=== PATIENT | female | born 1990 | race Caucasian/White ===

== ENCOUNTER 2019-10-08 22:49 | Outpatient (CLI) | payer MEDICAID ==
[~2019-10-08] VITALS: Ht 167.7 cm; Wt 118.7 kg
[~2019-10-08 22:49] MED LIST: HYOS0.1283 SL; IBP600T1 PO; IBUP-1773 PO; NITR-65 PO; ONDA4TAB8 PO; PREN-115 PO; PREN1TAB86 PO
--- NOTE | 2019-10-08 23:02 | NUR ---
JAIMEE TAMEZ presented to unit via AMBULAYION from ED, accompanied by SO, with c/o DIZZY,VOMITING. JAIMEE TAMEZ weighed, gowned, voided, and to bed. EFHM and TOCO applied, VS taken. JAIMEE TAMEZ oriented to bed controls, call light, TV, heat, and A/C controls.
[2019-10-08 23:18] VITALS: BP 132/71
--- NOTE | 2019-10-08 23:19 | NUR ---
Dr Thomas called and report given, pt denies nausea now but states she feels dizzy. Orders for pt to go to ER for eval. Pt requested to walk to ER. Pt educated on labor precautions and given verbal and written discharge papers.
[2019-10-08 23:23] LABS: BILIRUBIN,URINE NEGATIVE (NEGATIVE); CLARITY,URINE SL CLOUDY; COLOR,URINE YELLOW; GLUCOSE, URINE (UA) NEGATIVE (NEGATIVE); KETONES,URINE NEGATIVE (NEGATIVE); LEUKOCYTE ESTERASE ,URINE NEGATIVE (NEGATIVE); NITRITE,URINE NEGATIVE (NEGATIVE); PROTEIN,URINE NEGATIVE (NEGATIVE)
[2019-10-08 23:33] LABS: BACTERIA,URINE TRACE /HPF
[2019-10-08 23:34] VITALS: BP 132/71
[2019-10-08 23:37] VITALS: BP 132/71
[2019-10-09] MEDS ORDERED: ONDA4TAB11 PO (02:49)
--- NOTE | 2019-10-09 08:23 | Physician Query-Final Dx ---
ERIC BAZAN 10/09/19 0823: Clinic Account Progress/Dx Physician Query: Please give diagnosis Please include # weeks gestation Date of Service Oct 08, 2019 at 22:49 NICK DOUGLAS MD 10/09/19 1346: Clinic Account Progress/Dx DIAGNOSIS: Diagnosis Dizziness 25 weeks gestation ERIC BAZAN Oct 09, 2019 08:23 NICK DOUGLAS MD Oct 09, 2019 13:46
== END 2019-10-08 23:34 | disposition home or self-care (01) ==
LOC: LDRP 22:49 → WSo 22:49
PROVIDERS: ATTEND Family Medicine
DX: O26.812 Pregnancy related exhaustion and fatigue, second trimester (principal); Z3A.25 25 weeks gestation of pregnancy
CPT/HCPCS: 81000; 87088; 99212

== ENCOUNTER 2019-10-08 23:38 | Emergency (ER) | payer MEDICAID ==
[~2019-10-08] VITALS: Ht 167.7 cm; Wt 118.7 kg
[2019-10-09] MEDS ORDERED: LACTATED RINGERS 1,000 ML IV ONE (00:33)
[2019-10-09] MEDS ORDERED: ONDANSETRON 4 MG/2 ML (SDV) Z0FRAN IVP ONE (00:45)
[2019-10-09 00:55] LABS: BASOPHILS % (AUTO) 0 % (0-10); EOSINOPHILS # (AUTO) 0.2 10^3/uL (0.0-0.3); EOSINOPHILS % (AUTO) 3 % (0-10); HEMATOCRIT 35 % (35-52); HEMOGLOBIN 11.8 G/DL (11.5-16.0); LYMPHOCYTES # (AUTO) 1.9 X 10^3 (1.0-4.0); LYMPHOCYTES % (AUTO) 20 % (12-44); MEAN CORPUSCULAR HEMOGLOBIN 29 PG (25-34); MEAN CORPUSCULAR HGB CONC 33 G/DL (32-36); MEAN CORPUSCULAR VOLUME 87 FL (80-99); MEAN PLATELET VOLUME 11.6 FL (7.4-10.4); MONOCYTES # (AUTO) 0.7 X 10^3 (0.0-1.0); MONOCYTES % (AUTO) 7 % (0-12); NEUTROPHILS # (AUTO) 6.9 X 10^3 (1.8-7.8); NEUTROPHILS % (AUTO) 71 % (42-75); PLATELET COUNT 227 10^3/uL (130-400); RED CELL DISTRIBUTION WIDTH 13.8 % (10.0-14.5); WHITE BLOOD COUNT 9.8 10^3/uL (4.3-11.0)
[2019-10-09 01:17] LABS: ALANINE AMINOTRANSFERASE 9 U/L (0-55); ALBUMIN 3.7 GM/DL (3.2-4.5); ALKALINE PHOSPHATASE 53 U/L (40-136); AMYLASE 37 U/L (25-125); BILIRUBIN,TOTAL 0.2 MG/DL (0.1-1.0); BUN/CREATININE RATIO 10; CALCIUM 9.7 MG/DL (8.5-10.1); CARBON DIOXIDE 20 MMOL/L (21-32); CHLORIDE 104 MMOL/L (98-107); CREATININE SERUM 0.62 MG/DL (0.60-1.30); GFR ESTIMATED > 60; GLUCOSE 103 MG/DL (70-105); LIPASE 12 U/L (8-78); MAGNESIUM 1.6 MG/DL (1.6-2.4); POTASSIUM 3.6 MMOL/L (3.6-5.0); SODIUM 139 MMOL/L (135-145); TOTAL PROTEIN 6.7 GM/DL (6.4-8.2)
[2019-10-09 01:49] VITALS: BP_SYST 115; BP_SYST 118; BP_SYST 124; BP_DIAS 66; BP_DIAS 68; BP_DIAS 70
[2019-10-09 01:52] LABS: BILIRUBIN,URINE NEGATIVE (NEGATIVE); CLARITY,URINE CLEAR; COLOR,URINE YELLOW; GLUCOSE, URINE (UA) NEGATIVE (NEGATIVE); KETONES,URINE NEGATIVE (NEGATIVE); LEUKOCYTE ESTERASE ,URINE NEGATIVE (NEGATIVE); NITRITE,URINE NEGATIVE (NEGATIVE); PROTEIN,URINE NEGATIVE (NEGATIVE)
[2019-10-09 01:57] LABS: BACTERIA,URINE TRACE /HPF; RBC,URINE RARE /HPF; WBC,URINE RARE /HPF
[2019-10-09] MEDS ORDERED: RX-ONDANSETRON 4 MG ODT (ZOFRAN) PPK #4 PO STA (02:27)
[2019-10-09] MEDS ORDERED: ONDA4TAB11 PO (02:49)
[2019-10-09 02:50] VITALS: BP 122/74
--- NOTE | 2019-10-09 02:50 | ED GI ---
General Chief Complaint: Abdominal/GI Problems Stated Complaint: N,DIZZY,25 WKS PREG Nursing Triage Note: COMPALINS OF DIZZINESS X 2 DAYS AND STARTED HAVING NAUSEA AND VOMITING TODAY Sepsis Screen: No Definite Risk Source of Information: Patient History of Present Illness Date Seen by Provider: Oct 09, 2019 Time Seen by Provider: 00:30 Initial Comments PT ARRIVES VIA POV FROM HOME PT STATES SHE IS 25 WEEKS --WAS INITIALLY EVALUATED BY OB DEPT, THEN SENT BACK DOWN HERE PT STATES SHE HAS HAD NAUSEA SINCE 2200 TONIGHT AND HAS VOMITED X 3 NO DIARRHEA NO ABDOMINAL PAIN NO VAGINAL BLEEDING OR DISCHARGE STATES SHE HAS BEEN DIZZY THE LAST COUPLE OF DAYS STATES SHE HAS HAD LOWER BACK PAIN FOR A WEEK, AND IS NO DIFFERENT TODAY NO URINARY SYMPTOMS NO FEVER, NO COUGH/CONGESTION OR RECENT ILLNESS STATES SHE HAS BEEN EATING AND DRINKING NORMALLY STATES SHE HAS NOT HAD MUCH MORNING SICKNESS LATELY NO KNOWN SICK CONTACTS OR SUSPICIOUS FOODS. LAST SAW DR. DOUGLAS 10/02/19, AND HAS NEXT APPOINTMENT 10/30/18. PT IS AB 0--STATES SHE HAD HTN WITH PREVIOUS PREGNANCIES BUT NOT WITH THIS ONE SO FAR. SECOND CHILD WAS BORN PREMATURE AT 36 WEEKS. PCP/OB: DR. DOUGLAS Allergies and Home Medications Allergies Coded Allergies: codeine (Verified Allergy, Intermediate, RASH, 10/09/19) latex (Verified Allergy, Intermediate, RASH, 10/09/19) LATEX CONDOMS CAUSE IRRITATION AND RASH Home Medications Ondansetron 4 Mg Tab.rapdis, 4 MG PO Q4H Prescribed by: FERNANDEZ GARRIDO on 10/09/19 0249 Vit W-Ca,Fe,FA(<1 mg) 1 Each Tablet, 1 EACH PO DAILY, (Reported) Patient Home Medication List Home Medication List Reviewed: Yes Review of Systems Review of Systems Constitutional: see HPI; No chills, No diaphoresis; dizziness; No fever EENTM: No Symptoms Reported Respiratory: No Symptoms Reported; Denies Cough, Denies Shortness of Air Cardiovascular: No Symptoms Reported Gastrointestinal: Denies Abdominal Pain, Denies Constipated, Denies Diarrhea; Nausea; Denies Poor Appetite, Denies Poor Fluid Intake; Vomiting Genitourinary: No Symptoms Reported; Denies Burning, Denies Discharge, Denies Drainage, Denies Frequency, Denies Flank Pain, Denies Hematuria, Denies Incontinence, Denies Pain, Denies Urgency Musculoskeletal: see HPI, back pain, other (NO SWELLING) Skin: no symptoms reported Psychiatric/Neurological: No Symptoms Reported; Denies Headache, Denies Numbness, Denies Paresthesia, Denies Seizure, Denies Tingling, Denies Weakness Endocrine: No Symptoms Reported Hematologic/Lymphatic: No Symptoms Reported Past Tevwbgr-Fsjlus-Ciwzzq Hx Patient Social History Alcohol Use: Denies Use Recreational Drug Use: No Smoking Status: Former Smoker Type Used: Cigarettes Former Smoker, Quit: Oct 29, 2015 Recent Foreign Travel: No Contact w/Someone Who Travel: No Recent Infectious Disease Expo: No Recent Hopitalizations: No Physical Abuse: No Sexual Abuse: No Mistreated: No Fear: No Immunizations Up To Date Tetanus Booster (TDap): Less than 5yrs Date of Pneumonia Vaccine: Jul 31, 2012 Date of Influenza Vaccine: Aug 11, 2019 Seasonal Allergies Seasonal Allergies: No Past Medical History Surgeries: No Respiratory: No Cardiac: Yes ( INDUCED HTN WITH FIRST 2 PREGNANCIES) Heart Murmur Neurological: Yes (seizures from 18 yo to 22 yo) Seizure Disorder : Yes Expected Date of Delivery: Jan 19, 2020 Last Menstrual Period: Apr 14, 2019 Hx : 3 Hx Para: 2 ( INDUCED HTN WITH FIRST 2 PREGNANCIESSECOND WAS PREMATURE/36 WEEKS GESTATIONSVD X 2) Hx Total # of Abortions (Sp): 0 Reproductive Disorders: No Sexually Transmitted Disease: Yes (Chlamydia treated in the past) HIV/AIDS: No Genitourinary: No Gastrointestinal: Yes Hemorrhoids Musculoskeletal: No Endocrine: No HEENT: No Cancer: No Psychosocial: Yes Anxiety, Depression Integumentary: No Blood Disorders: No Adverse Reaction/Blood Tranf: No Family Medical History Diabetes mellitus (Father) FH: cancer (Grandmother) FH: thyroid condition (Father and sister) Hypertension (Mother) Physical Exam Vital Signs Vital Signs - First Documented 10/09/19 00:30 Temp 36.8 Pulse 99 Resp 20 B/P (MAP) 145/79 (101) Pulse Ox 97 Capillary Refill : Less Than 3 Seconds Height/Weight/BMI Height: 5'6.00" Weight: 248lbs. 2.0oz. [id number]; 42.00 BMI Method:Stated General Appearance: WD/WN, no apparent distress, obese, other (WALKS UPRIGHT AND MOVES WITHOUT DIFFICULTY. ) Neck: normal inspection Respiratory: normal breath sounds, no respiratory distress, no accessory muscle use Cardiovascular: normal peripheral pulses, regular rate, rhythm, no edema, no JVD, no murmur (NO MURMUR AUDIBLE AT THIS TIME) Gastrointestinal: normal bowel sounds, non tender, soft, other (GRAVID UTERUS ) Extremities: normal inspection, no pedal edema, no calf tenderness, normal capillary refill Back: normal inspection, no CVA tenderness Neurologic/Psychiatric: lead pressman II-XII nml as tested, no motor/sensory deficits, alert, normal mood/affect, oriented x 3 Skin: normal color, warm/dry Progress/Results/Core Measures Results/Orders Lab Results Laboratory Tests Test 10/09/19 00:45 10/09/19 01:47 Range/Units White Blood Count 9.8 4.3-11.0 10^3/uL Red Blood Count 4.08 L 4.35-5.85 10^6/uL Hemoglobin 11.8 11.5-16.0 G/DL Hematocrit 35 35-52 % Mean Corpuscular Volume 87 80-99 FL Mean Corpuscular Hemoglobin 29 25-34 PG Mean Corpuscular Hemoglobin Concent 33 32-36 G/DL Red Cell Distribution Width 13.8 10.0-14.5 % Platelet Count 227 130-400 10^3/uL Mean Platelet Volume 11.6 H 7.4-10.4 FL Neutrophils (%) (Auto) 71 42-75 % Lymphocytes (%) (Auto) 20 12-44 % Monocytes (%) (Auto) 7 0-12 % Eosinophils (%) (Auto) 3 0-10 % Basophils (%) (Auto) 0 0-10 % Neutrophils # (Auto) 6.9 1.8-7.8 X 10^3 Lymphocytes # (Auto) 1.9 1.0-4.0 X 10^3 Monocytes # (Auto) 0.7 0.0-1.0 X 10^3 Eosinophils # (Auto) 0.2 0.0-0.3 10^3/uL Basophils # (Auto) 0.0 0.0-0.1 10^3/uL Sodium Level 139 135-145 MMOL/L Potassium Level 3.6 3.6-5.0 MMOL/L Chloride Level 104 98-107 MMOL/L Carbon Dioxide Level 20 L 21-32 MMOL/L Anion Gap 15 H 5-14 MMOL/L Blood Urea Nitrogen 6 L 7-18 MG/DL Creatinine 0.62 0.60-1.30 MG/DL Estimat Glomerular Filtration Rate > 60 BUN/Creatinine Ratio 10 Glucose Level 103 70-105 MG/DL Calcium Level 9.7 8.5-10.1 MG/DL Corrected Calcium 9.9 8.5-10.1 MG/DL Magnesium Level 1.6 1.6-2.4 MG/DL Total Bilirubin 0.2 0.1-1.0 MG/DL Aspartate Amino Transf (AST/SGOT) 12 5-34 U/L Alanine Aminotransferase (ALT/SGPT) 9 0-55 U/L Alkaline Phosphatase 53 40-136 U/L Total Protein 6.7 6.4-8.2 GM/DL Albumin 3.7 3.2-4.5 GM/DL Amylase Level 37 25-125 U/L Lipase 12 8-78 U/L Urine Color YELLOW Urine Clarity CLEAR Urine pH 6.0 5-9 Urine Specific [place] 1.025 H 1.016-1.022 Urine Protein NEGATIVE NEGATIVE Urine Glucose (UA) NEGATIVE NEGATIVE Urine Ketones NEGATIVE NEGATIVE Urine Nitrite NEGATIVE NEGATIVE Urine Bilirubin NEGATIVE NEGATIVE Urine Urobilinogen 0.2 < = 1.0 MG/DL Urine Leukocyte Esterase NEGATIVE NEGATIVE Urine RBC (Auto) TRACE-I NEGATIVE Urine RBC RARE /HPF Urine WBC RARE /HPF Urine Squamous Epithelial Cells 2-5 /HPF Urine Crystals NONE /LPF Urine Bacteria TRACE /HPF Urine Casts NONE /LPF Urine Mucus NEGATIVE /LPF Urine Culture Indicated NO My Orders Orders - FERNANDEZ GARRIDO DO Ed Iv/Invasive Line Start (10/09/19 00:33) Monitor-Rhythm Ecg Trace Only (10/09/19:33) Orthostatic Vital Signs (Adult (10/09/19:33) Amylase (10/09/19:33) Cbc With Automated Diff (10/09/19:) Comprehensive Metabolic Panel (10/09/19:33) Lipase (10/09/19:33) Magnesium (10/09/19:33) Ua Culture If Indicated (10/09/19:) Ed Iv/Invasive Line Start (10/09/19:33) Lactated Ringers (Lr 1000 Ml Iv Solution (10/09/19:33) Ondansetron Injection (Zofran Injectio (10/09/19 00:45) Rx-Ondansetron Po (Rx-Zofran Po) (10/09/19 02:27) Medications Given in ED Current Medications Medications Dose Ordered Sig/Vaughn Route Start Time Stop Time Status Last Admin Dose Admin Lactated Ringer's 1,000 ml @ 0 mls/hr Q0M ONCE IV 10/09/19 00:33 10/09/19 00:34 DC 10/09/19 00:53 1,000 MLS/HR Ondansetron HCl 4 mg ONCE ONCE IVP 10/09/19 00:45 10/09/19 00:46 DC 10/09/19 00:53 4 MG Vital Signs/I&O 10/09/19 10/09/19 10/09/19 00:30 01:49 02:50 Temp 36.8 Pulse 99 86 99 99 106 Resp 20 23 B/P (MAP) 145/79 (101) 115/66 (82) 122/74 118/68 (85) 124/70 (88) Pulse Ox 97 96 Blood Pressure Mean: 88 Progress Progress Note : Progress Note NAUSEA IMPROVED WITH ZOFRAN ALSO GIVEN IV FLUIDS DIZZINESS IMPROVED AT DISMISSAL NO VOMITING DURING ER STAY AND PT TOLERATING WATER AND ICE CHIPS PRIOR TO DISMISSAL. UNEVENTFUL ER STAY Departure Impression Primary Impression: Nausea & vomiting Additional Impression: 25 weeks gestation of Disposition: 01 HOME, SELF-CARE Condition: Improved Departure-Patient Inst. Referrals: NICK DOUGLAS MD (PCP/Family) Primary Care Physician Patient Instructions: Nausea and Vomiting of (DC) Add. Discharge Instructions: CLEAR LIQUIDS, SIPS AT A TIME--WATER, BROTH, JELLO, GATORADE TOMORROW IF YOUR NAUSEA IS BETTER, ADD BRATS DIET TO CLEAR LIQUIDS--BANANAS, RICE, APPLESAUCE, TOAST, SALTINES FOLLOW UP WITH [facility] IN 2-3 DAYS IF NO BETTER All discharge instructions reviewed with patient and/or family. Voiced understanding. Scripts Ondansetron (Ondansetron Odt) 4 Mg Tab.rapdis 4 MG PO Q4H for Nausea/Vomiting, #10 TAB Prov: FERNANDEZ GARRIDO DO 10/09/19 FERNANDEZ GARRIDO DO Oct 09, 2019 02:49
== END 2019-10-09 02:59 | disposition home or self-care (01) ==
LOC: EDUNIT# 23:38 → ER 23:40
DX: O21.2 Late vomiting of pregnancy (principal); O99.352 Diseases of the nervous system complicating pregnancy, second trimester; G40.909 Epilepsy, unspecified, not intractable, without status epilepticus; O99.342 Other mental disorders complicating pregnancy, second trimester; F41.9 Anxiety disorder, unspecified; F32.9 Major depressive disorder, single episode, unspecified; Z3A.25 25 weeks gestation of pregnancy; Z88.5 Allergy status to narcotic agent; Z91.040 Latex allergy status; Z87.891 Personal history of nicotine dependence; Z87.59 Personal history of other complications of pregnancy, childbirth and the puerperium; Z82.49 Family history of ischemic heart disease and other diseases of the circulatory system
CPT/HCPCS: 36415; 80053; 81000; 82150; 83690; 83735; 85025; 93041; 96361; 96374

== ENCOUNTER 2019-11-09 21:53 | Outpatient (CLI) | payer MEDICAID ==
[~2019-11-09] VITALS: Ht 167.7 cm; Wt 118.9 kg
[~2019-11-09 21:53] MED LIST changes: +ONDA4TAB11 PO
--- NOTE | 2019-11-09 22:00 | NUR ---
JAIMEE TAMEZ presented to unit via ambulation from home/ED, accompanied by FAMILY, with c/o LBP, FEVER. JAIMEE TAMEZ weighed, gowned, voided, and to bed. EFHM and TOCO applied, VS taken. JAIMEE TAMEZ oriented to bed controls, call light, TV, heat, and A/C controls. Addendum: 11/09/19 at 2204 by CHENG BOONE RN LBP= lower back pain
[2019-11-09 22:08] VITALS: BP 131/74
[2019-11-09 22:19] LABS: BILIRUBIN,URINE NEGATIVE (NEGATIVE); CLARITY,URINE CLEAR; COLOR,URINE YELLOW; GLUCOSE, URINE (UA) NEGATIVE (NEGATIVE); KETONES,URINE NEGATIVE (NEGATIVE); LEUKOCYTE ESTERASE ,URINE NEGATIVE (NEGATIVE); NITRITE,URINE NEGATIVE (NEGATIVE); PROTEIN,URINE NEGATIVE (NEGATIVE)
[2019-11-09 22:27] LABS: RBC,URINE 0-2 /HPF
[2019-11-09 22:28] LABS: BACTERIA,URINE TRACE /HPF
[2019-11-09] MEDS ORDERED: ACETAMINOPHEN 500 MG TAB (TYLENOL) ONE (22:53)
[2019-11-09] MEDS ORDERED: ACETAMINOPHEN 500 MG TAB (TYLENOL) PO ONE (23:00)
--- NOTE | 2019-11-09 23:00 | NUR ---
D/C instructions given & explained, pt. verbalized understanding & signed, copy of D/C instructions to pt. Pt. left [facility] ambulatory escorted by family, to home via private vehicle.
--- NOTE | 2019-11-10 09:32 | Physician Query-Final Dx ---
Clinic Account Progress/Dx Physician Query: Please give diagnosis Please give # weeks gestation Date of Service Nov 09, 2019 at 21:53 ERIC BAZAN Nov 10, 2019 09:32
== END 2019-11-09 23:00 | disposition home or self-care (01) ==
LOC: WSo 21:53 → LDRP 21:54 → WSo 23:00
PROVIDERS: ATTEND Family Medicine
DX: O26.893 Other specified pregnancy related conditions, third trimester (principal); M54.5 Low back pain; Z3A.29 29 weeks gestation of pregnancy
CPT/HCPCS: 81000; 99212

== ENCOUNTER 2020-01-06 19:02 | Outpatient (CLI) | payer MEDICAID ==
[~2020-01-06] VITALS: Ht 167.7 cm; Wt 124.3 kg
--- NOTE | 2020-01-06 19:02 | NUR ---
JAIMEE TAMEZ presented to unit via ambulatory, from ED, accompanied by s.o., with c/o POSS RUPTURE OF MEMBRANES. JAIMEE TAMEZ weighed, gowned, voided, and to bed. EFHM and TOCO applied, VS taken. JAIMEE TAMEZ oriented to bed controls, call light, TV, heat, and A/C controls.
[2020-01-06 19:10] VITALS: BP 141/85
--- NOTE | 2020-01-06 19:13 | NUR ---
pt to external monitors, +FM. pt states was at home going to Bathroom around 1830 and felt like she was leaking fluid after void. Pt states it was yellowish in color. Pt denies leaking on clothes on the way here, denies gush of fluid. Pt denies recent sex.
--- NOTE | 2020-01-06 19:17 | NUR ---
Pt's HOB lowered, amnio swab done, no fluid noted at perineum or on pad, amnio swab yellow with a few small blue/green dots. SVE done without gel. 3cm/70/-2, head ballotable, no fluid noted, unable to determine if there is a bag. Had pt Cough with exam, no fluid noted. Second amnio swab obtained and majority of swab was dark blue. Pericare given. Pt denies pain, and denies contractions. Will call dr and update on assessment.
[2020-01-06 19:34] LABS: BILIRUBIN,URINE NEGATIVE (NEGATIVE); CLARITY,URINE CLEAR; COLOR,URINE YELLOW; GLUCOSE, URINE (UA) NEGATIVE (NEGATIVE); KETONES,URINE NEGATIVE (NEGATIVE); LEUKOCYTE ESTERASE ,URINE NEGATIVE (NEGATIVE); NITRITE,URINE NEGATIVE (NEGATIVE); PROTEIN,URINE 1+ (NEGATIVE)
[2020-01-06 19:35] VITALS: BP 128/71
[2020-01-06 20:00] VITALS: BP 128/71
--- NOTE | 2020-01-06 20:00 | NUR ---
Dr. ford called and updated. Will monitor over night. CHASE in AM.
--- NOTE | 2020-01-06 20:03 | NUR ---
pt up to void. 2014 back to bed and plan of care updated.
[2020-01-06 20:06] LABS: RBC,URINE 0-2 /HPF
[2020-01-06 20:07] LABS: BACTERIA,URINE FEW /HPF; WBC,URINE 0-2 /HPF
[2020-01-06 20:57] VITALS: BP 128/71
--- NOTE | 2020-01-06 21:06 | NUR ---
toco and efm adjusted. pt sitting up in bed with s.o. at bedside.
--- NOTE | 2020-01-06 21:18 | NUR ---
Call light answered. pt states she needs to go to bathroom to void but feels like there may be more fluid leaking, small amount of clear/yellow fluid noted on pad, labia minora with two fingers, fluid noted from urethra, amnio swab negative. pt up to void. 2126 pt back to bed, sve done, no change noted, fluid bag felt with this exam, no fluid noted when balloting head. pericare given. Will cont. to monitor.
[2020-01-06 22:25] VITALS: BP 126/58
[2020-01-06] MEDS ORDERED: ACETAMINOPHEN 500 MG TAB (TYLENOL) PO ONE (23:30)
[2020-01-07 01:00] VITALS: BP 126/67
[2020-01-07 04:43] VITALS: BP 129/66
--- NOTE | 2020-01-07 08:17 | NUR ---
here. dismissal orders received.
[2020-01-07 08:20] VITALS: BP 123/67
--- NOTE | 2020-01-07 08:20 | NUR ---
initial shift assessment completed, see interventions for further. POC reviewed.
--- NOTE | 2020-01-07 08:30 | NUR ---
dismissal instructions given, verbalizes understanding. reviewed sx's and sx's to RTC. pt scheduled for IOL next Sunday, reviewed support person policy on admission. signature page signed, placed on chart. pt ambulated to private vehicle with s/o @ side.
--- NOTE | 2020-01-07 08:46 | Diagnostic Imaging Report ---
INDICATION: Rupture of membranes. There is a single live fetus in a cephalic presentation. heart rate was recorded at 152 bpm. Placenta is posterior. Amniotic fluid index is 11 cm. IMPRESSION: Limited obstetrical ultrasound, as described. Dictated by: Dictated on workstation # [id number]
== END 2020-01-07 08:30 | disposition home or self-care (01) ==
LOC: LDRP 19:02 → WSo 19:02
PROVIDERS: ATTEND Family Medicine
DX: O42.90 Premature rupture of membranes, unspecified as to length of time between rupture and onset of labor, unspecified weeks of gestation (principal); Z3A.00 Weeks of gestation of pregnancy not specified
CPT/HCPCS: 76815; 81000; 99214

== ENCOUNTER 2020-01-13 06:00 | Inpatient (IN) | payer MEDICAID ==
[2020-01-13] VITALS (42 sets, daily range): BP systolic 105–143; BP diastolic 53–87
[~2020-01-13] VITALS: Ht 167 cm; Wt 124.5 kg
--- NOTE | 2020-01-13 06:10 | NUR ---
JAIMEE TAMEZ presented to unit via AMBULATORY WEARING A MASK from ED, accompanied by S/O, with c/o INDUCTION 39 10/21. JAIMEE TAMEZ weighed, gowned, voided, and to bed. EFHM and TOCO applied, VS taken. JAIMEE TAMEZ oriented to bed controls, call light, TV, heat, and A/C controls.
[2020-01-13] MEDS ORDERED: D5 LR IV SOLUTION 1,000 ML IV SCH (06:23)
[2020-01-13] MEDS ORDERED: D5 LR IV SOLUTION 1,000 ML IV ONE (06:25)
[2020-01-13] MEDS ORDERED: MINERAL OIL CONCENTRATE 99.9% 15 ML UDC TOP PRN (06:30)
[2020-01-13 06:52] LABS: BASOPHILS % (AUTO) 0 % (0-10); EOSINOPHILS # (AUTO) 0.1 10^3/uL (0.0-0.3); EOSINOPHILS % (AUTO) 1 % (0-10); HEMATOCRIT 34 % (35-52); HEMOGLOBIN 10.7 G/DL (11.5-16.0); LYMPHOCYTES # (AUTO) 1.7 X 10^3 (1.0-4.0); LYMPHOCYTES % (AUTO) 19 % (12-44); MEAN CORPUSCULAR HEMOGLOBIN 27 PG (25-34); MEAN CORPUSCULAR HGB CONC 32 G/DL (32-36); MEAN CORPUSCULAR VOLUME 84 FL (80-99); MEAN PLATELET VOLUME 11.6 FL (7.4-10.4); MONOCYTES # (AUTO) 0.7 X 10^3 (0.0-1.0); MONOCYTES % (AUTO) 8 % (0-12); NEUTROPHILS # (AUTO) 6.7 X 10^3 (1.8-7.8); NEUTROPHILS % (AUTO) 73 % (42-75); PLATELET COUNT 237 10^3/uL (130-400); RED CELL DISTRIBUTION WIDTH 15.4 % (10.0-14.5); WHITE BLOOD COUNT 9.2 10^3/uL (4.3-11.0)
[2020-01-13] MEDS: OXYTOCIN PRE-MIX DRIP 500 ML IV SCH ×2 (08:00→08:08)
[2020-01-13] MEDS ORDERED: fentaNYL 2 mcg/ml BUPIVA 0.125 100 ML ONE (10:10)
[2020-01-13] MEDS ORDERED: LIDOCAINE PF 2% 5 ML (XYLOCAINE) VIAL ONE (10:46)
[2020-01-13] MEDS ORDERED: BUPIVACAINE 0.25% 30 ML (SENSORCAINE) VIAL ONE (10:46)
[2020-01-13] MEDS ORDERED: fentaNYL INJECTION 100 MCG/2 ML AMP ONE ×2 (10:47→12:32)
[2020-01-13] MEDS ORDERED: LACTATED RINGERS 1,000 ML IV SCH (10:48)
[2020-01-13] MEDS ORDERED: DOXY25TA56 PO (10:55)
[2020-01-13] MEDS ORDERED: PYRI50TA PO (10:55)
--- NOTE | 2020-01-13 10:56 | History & Physical-OB ---
OB - Chief Complaint & HPI Date/Time Date of Admission: Date of Admission: Jan 13, 2020 at 06:00 Date seen by a Provider: Jan 13, 2020 Time Seen by a Provider: 09:40 Chief Complaint/History OB-Reason for Admission/Chief: Induction of Labor Expected Date of Delivery: Jan 19, 2020 Gestational Age in Weeks: 39 Gestational Age in Days: 1 Indication for induction: maternal discomfort Admission Nurse Assessment Rev: Yes History of Labs A+, antibody neg, RI. GC/chlamydia neg. HIV/HepB/RPR NR. 1 hour glucola normal, GBS neg. Allergies and Home Medications Allergies Coded Allergies: codeine (Verified Allergy, Intermediate, RASH, 10/09/19) latex (Verified Allergy, Intermediate, RASH, 10/09/19) LATEX CONDOMS CAUSE IRRITATION AND RASH Home Medications Doxylamine Succinate 25 Mg Tablet, 12.5 MG PO HS PRN for NAUSEA/VOMITING-1ST LINE, (Reported) Vit W-Ca,Fe,FA(<1 mg) 1 Each Tablet, 1 EACH PO DAILY, (Reported) Pyridoxine HCl 50 Mg Tablet, 50 MG PO Q8H PRN for NAUSEA/VOMITING-1ST LINE, (Reported) Patient Home Medication List Home Medication List Reviewed: Yes OB - History Hx of Present Care: Yes Ultrasounds: Normal mid trimester US (nuchal cord noted on 30 week US done for decreased FM, not noted on later BPP) Obstetrical Complications: None Medical Complications: Neurological (seizure disorder, not on meds for last 5 years, last seizure a year ago prior to ) Information Induced Hypertension: No Maternal Gestational Diabetes: No Hemorrhage: No Obstetrical History Hx : 3 Hx Para: 2 Hx # Term Pregnancies: 1 Hx # Pregnancies: 1 Number of Living Children: 2 Hx Termination: No Hx Multiple Gestation: No Hx Ectopic : No Hx Stillbirth: No Hx Complication: No Hx Induced Hypertens: No Hx Maternal Gestational Diabet: No Hx Hemorrhage: No Delivery History Hx Dystocia: No Hx Forceps Assisted Delivery: No Hx Vacuum Extraction Assisted: No Hx Placenta Abnormality: No Hx Distress: No Hx Large For Gestational Age I: No Hx Small for Gestational Age I: No Hx Section: No Hx Vaginal Delivery Post C-Sec: No Hx Blood Disorders: No Adverse Rxn to Tranfusion: No Patient Past Medical History PMHx: Seizure disorder Depression Anxiety Social History/Family History HIV/AIDS: No Recent Infectious Disease Expo: No Sexually Transmitted Disease: Yes (Chlamydia treated in the past) Alcohol Use: Denies Use Recreational Drug Use: No Smoking Cessation: Former smoker 2nd Hand Smoke Exposure: No Immunizations Hepatitis A: Yes Hepatitis B: Yes Tetanus Booster (TDap): Less than 5yrs Date of Pneumonia Vaccine: Jul 31, 2012 Date of Influenza Vaccine: Aug 11, 2019 Rubella: immune RPR/VDRL: Negative GBS Status: Negative HBsAG: Negative OB - Admission Exam Physical Exam Vitals: Vital Signs 01/13/20 01/13/20 01/13/20 01/13/20 06:53 08:00 08:45 09:30 Temp 36.2 Pulse 86 Resp 18 B/P (MAP) 114/64 (81) Pulse Ox 98 O2 Delivery Room Air HEENT: NCAT Abdomen: Non tender Extremities: Normal Cervical Dilatation: 4cm Effacement: 50% Station: -3 Membranes: Intact (AROM at time of exam) Amniotic Fluid: Clear Decelerations: No Decelerations Short Term Variability: Present Electrical Mechanic Variability: Average (6-25) Contractions on Admission: >10 Minutes Apart Stearns Scoring Tool (Modified) Dilation (cm): 3-4cm (2) Effacement (%): 31-51% (1) Descent/Station: -3 (0) Cervix Consistency: Soft (2) Cervix Position: Anterior (2) Add 1 point for: Each previous vaginal delivery (1) (2) Stearns Score: 9 Labs Laboratory Tests Test 01/13/20 06:35 Range/Units White Blood Count 9.2 4.3-11.0 10^3/uL Red Blood Count 3.99 L 4.35-5.85 10^6/uL Hemoglobin 10.7 L 11.5-16.0 G/DL Hematocrit 34 L 35-52 % Mean Corpuscular Volume 84 80-99 FL Mean Corpuscular Hemoglobin 27 25-34 PG Mean Corpuscular Hemoglobin Concent 32 32-36 G/DL Red Cell Distribution Width 15.4 H 10.0-14.5 % Platelet Count 237 130-400 10^3/uL Mean Platelet Volume 11.6 H 7.4-10.4 FL Neutrophils (%) (Auto) 73 42-75 % Lymphocytes (%) (Auto) 19 12-44 % Monocytes (%) (Auto) 8 0-12 % Eosinophils (%) (Auto) 1 0-10 % Basophils (%) (Auto) 0 0-10 % Neutrophils # (Auto) 6.7 1.8-7.8 X 10^3 Lymphocytes # (Auto) 1.7 1.0-4.0 X 10^3 Monocytes # (Auto) 0.7 0.0-1.0 X 10^3 Eosinophils # (Auto) 0.1 0.0-0.3 10^3/uL Basophils # (Auto) 0.0 0.0-0.1 10^3/uL OB - Assessment/Plan/Diagnosis Assessment Assessment: induction of labor Admission Dx 39 weeks gestation Induction of labor GBS neg Admission Status: Inpatient Order (span 2 midnights) Reason for Inpatient Admission: Labor, delivery and course Plan Plan: Induction Induction Method: per Pitocin Protocol Other Plan AROM done at time of exam NICK DOUGLAS MD Jan 13, 2020 10:56
[2020-01-13] MEDS ORDERED: diphenhydrAMINE 50 MG/ML INJ (BENADRYL) IV PRN (11:00)
[2020-01-13] MEDS ORDERED: EPIDURAL (fentaNYL 2 MCG/ML BUPIVA 0.125%)100 ML BAG EPI PRN (11:00)
[2020-01-13] MEDS ORDERED: ONDANSETRON 4 MG/2 ML (SDV) Z0FRAN IV PRN (11:00)
[2020-01-13] MEDS ORDERED: NALOXONE 0.4 MG/ML 1 ML (NARCAN) VIAL IV PRN (11:00)
[2020-01-13] MEDS ORDERED: LIDOCAINE 1% INJ 20 ML 20 ML VIAL ONE (11:11)
--- NOTE | 2020-01-13 12:34 | NUR ---
Dr Thomas called by this RN with update pt report. Attempted epidural placement, anesthesia worked on epidural placement for 1 hour. Has epidural in place but does not seem to be working per Richard Grey CRNA. SVE 7cm. Pt rating pian 10. Pitocin rate, UC pattern, FHT reviewed. Order received from Dr Thomas for Fentanyl 50mcg x1 now. Rn may place FSE if needed.
[2020-01-13] MEDS ORDERED: fentaNYL INJECTION 100 MCG/2 ML AMP IVP ONE (12:45)
--- NOTE | 2020-01-13 13:15 | NUR ---
RN calls Dr Thomas to come for delivery. 9.[address]
[2020-01-13] MEDS ORDERED: LIDOCAINE/EPI 2% 1:200,00 (XYLOCAINE) 10 ML VIAL ONE (13:25)
[2020-01-13] MEDS ORDERED: LIDOCAINE/EPI 2% 1:200,00 (XYLOCAINE) 10 ML VIAL INJ ONE (13:30)
--- NOTE | 2020-01-13 14:10 | OB Labor & Delivery Record ---
Vag Delivery Note Vag Delivery Note Date of Delivery: 01/13/20 Preoperative Diagnosis: Judy Alvarado is a (30 /Para 3 / 2, Gestational Age (wks)39with 1 day Postoperative Diagnosis: Same Surgeon: NICK DOUGLAS Mold Closer Helper: None Anesthesia: Epidural Delivery Type: Spontaneous vaginal Findings: Viable female infant, apgars [], weight [] Lacerations: right perineal abrasion, anterior vulva Intact placenta with 3 vessel cord. No nuchal cord, body cord or shoulder dystocia Estimated Blood Loss: 350 ml Complications: None Condition: Stable Description of Procedure: The patient is a 30 year old female who presented for induction of labor. She was admitted and informed consent was obtained. Her labor course was unremarkable. She progressed to complete dilatation and began to push. She was then set up for delivery. The infant's head was delivered atraumatically in the LD position. The shoulders and remainder of the infant's body were then delivered without difficulty. Upon delivery, the was placed on maternal abdomen. After a delay, the cord was doubly clamped and cut and the infant was handed off to the pediatric staff. An intact placenta with 3-vessel cord delivered via Gianluca and there was found to be minimal bleeding.~ Vigorous fundal massage was performed and the fundus was found to be firm. IV oxytocin was given. Examination of the vagina and perineum revealed a right perineal abrasion, hemostatic and anterior vulvar laceration repaired with one simple 3-0 rapide suture. Following the repair, sponge, instrument and needle counts were correct. Mom and baby were both in stable condition in the labor suite. Vitals - Labs Vital Signs - I&O Vital Signs Date Time Temp Pulse Resp B/P (MAP) Pulse Ox O2 Delivery O2 Flow Rate FiO2 01/13/20 09:30 86 114/64 (81) Room Air 01/13/20 09:15 86 106/56 (73) Room Air 01/13/20 09:00 82 108/60 (76) Room Air 01/13/20 08:45 86 18 116/68 (84) Room Air 01/13/20 08:30 90 117/68 (84) Room Air 01/13/20 08:15 86 122/72 (89) Room Air 01/13/20 08:00 36.2 89 114/64 (81) Room Air 01/13/20 07:00 97 16 123/67 (85) Room Air 01/13/20 06:53 36.6 100 18 98 Room Air Labs Laboratory Tests 01/13/20 06:35: White Blood Count 9.2, Red Blood Count 3.99L, Hemoglobin 10.7L, Hematocrit 34L, Mean Corpuscular Volume 84, Mean Corpuscular Hemoglobin 27, Mean Corpuscular Hemoglobin Concent 32, Red Cell Distribution Width 15.4H, Platelet Count 237, Mean Platelet Volume 11.6H, Neutrophils (%) (Auto) 73, Lymphocytes (%) (Auto) 19, Monocytes (%) (Auto) 8, Eosinophils (%) (Auto) 1, Basophils (%) (Auto) 0, Neutrophils # (Auto) 6.7, Lymphocytes # (Auto) 1.7, Monocytes # (Auto) 0.7, Eosinophils # (Auto) 0.1, Basophils # (Auto) 0.0 NICK DOUGLAS MD Jan 13, 2020 14:10
--- NOTE | 2020-01-13 14:55 | Anesthesia-Regional Post-Op ---
Regional Patient Condition Mental Status: Alert, Oriented x3 Circulation: Same as Pre-Op Headache: Absent Sensation: Full Recovery Motor Block: Absent Post Op Complications Complications None Follow Up Care/Instructions Patient Instructions None needed. Anesthesia/Patient Condition Patient is doing well, stable vital signs, no apparent adverse anesthesia problems. Her LE placement was very difficult and did not appear to work per patient. She never did get pain relief, but she did not wish to attempt to replace epidural catheter when I talked to her afterwards and it appeared to not be working. She wanted to proceed with IV pain medication. She delivered about 90 minutes ago and is doing well. I counseled her and family and they understood. We will be available if needed. GOMEZ VENTURA DO Jan 13, 2020 14:55
[2020-01-13] MEDS ORDERED: OXYTOCIN PRE-MIX DRIP 500 ML IV SCH (15:15)
[2020-01-13] MEDS ORDERED: WITCH HAZEL(TUCKS) 40 EA JAR TOP PRN (15:15)
[2020-01-13] MEDS ORDERED: MEASLES,MUMPS,RUBELLA 1 EA INJ SQ ONE (15:15)
[2020-01-13] MEDS ORDERED: BENZOCAINE/MENTHOL (DERMOPLAST) 60 ML CAN TP PRN (15:15)
[2020-01-13] MEDS ORDERED: TETANUS,DIPTH,PERTUSS P/F (BOOSTRIX) 0.5 ML VIAL IM ONE (15:15)
[2020-01-13] MEDS: IBUPROFEN 600 MG (MOTRIN) TAB PO SCH ×2 (16:06→22:31)
--- NOTE | 2020-01-13 16:35 | NUR ---
Recovery Period begins at 1340. Fundus firm, midline, level with umbilicus, scant bleeding. pt denies pain and needs at this time. pericare by this rn. fob remains at bedside. call light within reach. 1355: Fundus firm, midline, level with umbilicus, scant bleeding. pt denies pain and needs at this time. pt skin to skin with . fob remains at bedside. call light within reach. 1410: Fundus firm, midline, level with umbilicus, scant bleeding. pt denies needs at this time. pt skin to skin with . fob remains at bedside. call light within reach. 1425: Fundus firm, midline, level with umbilicus, scant bleeding. pt denies needs at this time. pt bottle feeding infant. fob remains at bedside. call light within reach. 1440:Fundus firm, midline, level with umbilicus, scant bleeding. pt denies needs at this time. pt holding infant. infant swaddled in blankets and handed back to pt. fob remains at bedside. call light within reach. 1510: Fundus firm, midline, level with umbilicus, scant bleeding. pt denies needs at this time. fob holding infant at bedside. call light within reach. 1540: Fundus firm, midline, level with umbilicus, scant bleeding. pt denies needs at this time. infant resting peacefully in crib next to pt at bedside. mother laying in bed relaxed. call light within reach. 1630: Pericare by pt and this RN. RN teaches dermoplast and tucks pads, additional pericare. 1635: Pt transferred to room 312 at this time.
[2020-01-13] MEDS ORDERED: ACETAMINOPHEN 500 MG TAB (TYLENOL) ONE (19:25)
[2020-01-13] MEDS: ACETAMINOPHEN 500 MG TAB (TYLENOL) PO PRN (19:35)
[2020-01-13] MEDS ORDERED: DOCUSATE SODIUM 100 MG (COLACE) CAP PO SCH (21:00)
[2020-01-13] MEDS ORDERED: CATHETER FLUSH 10 ML SYR IV SCH (22:00)
[2020-01-14 04:36] VITALS: BP 100/69
[2020-01-14] MEDS: IBUPROFEN 600 MG (MOTRIN) TAB PO SCH ×3 (04:36→16:12)
[2020-01-14 05:58] LABS: BASOPHILS % (AUTO) 0 % (0-10); EOSINOPHILS % (AUTO) 0 % (0-10); HEMATOCRIT 30 % (35-52); HEMOGLOBIN 9.8 G/DL (11.5-16.0); LYMPHOCYTES % (AUTO) 17 % (12-44); MEAN CORPUSCULAR HEMOGLOBIN 28 PG (25-34); MEAN CORPUSCULAR HGB CONC 32 G/DL (32-36); MEAN CORPUSCULAR VOLUME 85 FL (80-99); MEAN PLATELET VOLUME 11.6 FL (7.4-10.4); MONOCYTES # (AUTO) 0.7 X 10^3 (0.0-1.0); MONOCYTES % (AUTO) 6 % (0-12); NEUTROPHILS # (AUTO) 8.6 X 10^3 (1.8-7.8); NEUTROPHILS % (AUTO) 76 % (42-75); PLATELET COUNT 206 10^3/uL (130-400); RED CELL DISTRIBUTION WIDTH 15.2 % (10.0-14.5); WHITE BLOOD COUNT 11.3 10^3/uL (4.3-11.0)
[2020-01-14] MEDS ORDERED: PRENATAL VITAMIN 1 EA TAB PO SCH (07:00)
--- NOTE | 2020-01-14 07:34 | Anesthesia-Regional Post-Op ---
Regional Patient Condition Mental Status: Alert, Oriented x3 Circulation: Same as Pre-Op Headache: Absent Sensation: Full Recovery Motor Block: Absent Post Op Complications Complications None Follow Up Care/Instructions Patient Instructions None needed. Anesthesia/Patient Condition Patient is doing well, no complaints, stable vital signs, no apparent adverse anesthesia problems. No complications reported per nursing. JORGE GROVE CRNA Jan 14, 2020 07:34
[2020-01-14] MEDS ORDERED: FERROUS SULF 325 MG (IRON) TAB PO SCH (08:00)
[2020-01-14] MEDS ORDERED: IBUP-844 PO (08:33)
[2020-01-14] MEDS ORDERED: FERR325T18 PO (08:33)
--- NOTE | 2020-01-14 08:38 | Discharge Summary ---
Discharge Inst-[facility] Depart Medications New, Converted or Re-Newed RX: Transmitted to Pharmacy New Medications: Ferrous Sulfate (Ferrous Sulfate) 325 Mg Tablet 325 MG PO DAILY@0800, #30 TAB 0 Refills Ibuprofen (Ibu) 600 Mg Tablet 600 MG PO Q6H PRN for PAIN-MODERATE (5-7), #60 TAB 0 Refills Continued Medications: Vit W-Ca,Fe,FA(<1 mg) ( Vitamins) 1 Each Tablet 1 EACH PO DAILY, TAB Discontinued Medications: Doxylamine Succinate (Unisom) 25 Mg Tablet 12.5 MG PO HS PRN for NAUSEA/VOMITING-1ST LINE, TAB Pyridoxine HCl (Vitamin B-6) 50 Mg Tablet 50 MG PO Q8H PRN for NAUSEA/VOMITING-1ST LINE, TAB Follow Up/Instructions Goal/Follow Up: Follow up with Dr. Thomas in 6 weeks for visit. Activity Activity: Activity as Tolerated (avoid strenuous activity x 2 weeks) NO SMOKING: NO SMOKING Nothing Inside Vagina: No Douching, No [place], No Tampons Symptoms to Report to : Appetite Changes, Fever Over 101 Degrees F, Pain/Pressure in Chest, Vaginal Bleeding Increase, Vaginal Discharge Foul, Nausea/Vomiting, Shortness of Breath For Any Problems or Questions: Contact Your Physician NICK THOMAS MD Jan 14, 2020 08:38
[2020-01-14 09:00] VITALS: BP 137/79
--- NOTE | 2020-01-14 09:00 | NUR ---
A.M. ASSESSMENT COMPLETED. VSS. CARING FOR IN ROOM.
[2020-01-14] MEDS: ACETAMINOPHEN 500 MG TAB (TYLENOL) PO PRN (09:22)
--- NOTE | 2020-01-14 10:00 | NUR ---
DR. DOUGLAS HERE TO SEE PT. PLAN FOR DISCHARGE THIS AFTERNOON.
--- NOTE | 2020-01-14 11:36 | Discharge Summary ---
Discharge Summary Hospital Course Problems Reviewed?: Yes Hospital Course Date of Admission: Jan 13, 2020 at 06:00 Admission Diagnosis : Family Physician/Provider: Nick Thomas MD Date of Discharge: 01/14/20 Discharge Diagnosis: s/p spontaneous vaginal delivery anemia asymptomatic Hospital Course: Pt admitted for elective induction of labor at 39 weeks, had uncomplicated labor and delivery and course. Labs and Pending Lab Test: Laboratory Tests 01/14/20 05:42: White Blood Count 11.3H, Red Blood Count 3.57L, Hemoglobin 9.8L, Hematocrit 30L, Mean Corpuscular Volume 85, Mean Corpuscular Hemoglobin 28, Mean Corpuscular Hemoglobin Concent 32, Red Cell Distribution Width 15.2H, Platelet Count 206, Mean Platelet Volume 11.6H, Neutrophils (%) (Auto) 76H, Lymphocytes (%) (Auto) 17, Monocytes (%) (Auto) 6, Eosinophils (%) (Auto) 0, Basophils (%) (Auto) 0, Neutrophils # (Auto) 8.6H, Lymphocytes # (Auto) 2.0, Monocytes # (Auto) 0.7, Eosinophils # (Auto) 0.0, Basophils # (Auto) 0.0 Home Meds Active Reported Unisom (Doxylamine Succinate) 25 Mg Tablet 12.5 Mg PO HS PRN Vitamin B-6 (Pyridoxine HCl) 50 Mg Tablet 50 Mg PO Q8H PRN Vitamins ( Vit W-Ca,Fe,FA(<1 mg)) 1 Each Tablet 1 Each PO DAILY Assessment/Pt DC Instructions Follow up with Dr. Thomas in 6 weeks for visit. Discharge Diet: No Restrictions Activity as Tolerated: Yes (avoid strenuous activity x 2 weeks) Discharge Physical Examination Allergies: Coded Allergies: codeine (Verified Allergy, Intermediate, RASH, 10/09/19) latex (Verified Allergy, Intermediate, RASH, 10/09/19) LATEX CONDOMS CAUSE IRRITATION AND RASH General Appearance: No Apparent Distress, WD/WN Respiratory: Lungs Clear, Normal Breath Sounds Cardiovascular: Regular Rate, Rhythm, No Murmur Skin: Normal Color, Warm/Dry Neurologic/Psychiatric: Normal Mood/Affect Clinical Quality Measures DVT/VTE Risk/Contraindication: Risk Factor Score Per Nursin RFS Level Per Nursing on Admit: 1=Low/No VTE PPX NICK THOMAS MD Jan 14, 2020 08:35
--- NOTE | 2020-01-14 13:00 | NUR ---
EATING STORK MEAL.
[2020-01-14 13:30] VITALS: BP 123/72
--- NOTE | 2020-01-14 16:25 | NUR ---
DISCHARGE INSTRUCTIONS REVIEWED WITH COPY TO PT. STATES UNDERSTANDING OF ALL INSTRUCTIONS AND NEED TO F/U SCHEDULED AND NEEDED.
[2020-01-14 16:40] VITALS: BP 123/72
--- NOTE | 2020-01-14 16:40 | NUR ---
DISMISSED AMB FROM [facility] WITH TO FAMILY CAR IN STABLE CONDITION ACC BY ILIANA GONG.
== END 2020-01-14 16:40 | disposition home or self-care (01) | DRG 807 ==
LOC: LDRP 06:00
PROVIDERS: ADMIT Family Medicine; ATTEND Family Medicine
PROC: 10E0XZZ Delivery of Products of Conception, External Approach (ICD-10-PCS; principal; 2020-01-13)
PROC: 0HQ9XZZ Repair Perineum Skin, External Approach (ICD-10-PCS; 2020-01-13)
PROC: 3E033VJ Introduction of Other Hormone into Peripheral Vein, Percutaneous Approach (ICD-10-PCS; 2020-01-13)
DX: O99.353 Diseases of the nervous system complicating pregnancy, third trimester (principal); G40.909 Epilepsy, unspecified, not intractable, without status epilepticus; O70.0 First degree perineal laceration during delivery; O99.344 Other mental disorders complicating childbirth; F41.9 Anxiety disorder, unspecified; F32.9 Major depressive disorder, single episode, unspecified; O90.81 Anemia of the puerperium; Z37.0 Single live birth; Z3A.39 39 weeks gestation of pregnancy; D64.9 Anemia, unspecified
CPT/HCPCS: 36415; 85025; 86850; 86900; 86901